=== PATIENT | male | born 1950 | race Hispanic/Latino ===

== ENCOUNTER 2016-12-24 09:21 | Outpatient (CLI) | payer MEDICARE ==
--- NOTE | 2016-12-24 10:58 | XRay Report ---
RIGHT HIP TWO VIEWS: 12/24/16 09:21:00 CLINICAL: Right hip and thigh pain. FINDINGS: Moderately severe bilateral hip osteoarthritis, slightly greater on the right than the left. Both superolateral and medial joint space narrowing. A large right superolateral osteophyte. No fracture or dislocation. The pelvic bones are intact with normal SI joints. Normal soft tissues. IMPRESSION: Moderately severe bilateral osteoarthritis, right worse than left.
--- NOTE | 2016-12-24 11:06 | XRay Report ---
RIGHT FEMUR TWO VIEWS: 12/24/16 09:21:00 CLINICAL: Right hip and thigh pain. FINDINGS: Normal alignment at the hip and knee. A moderately severe osteoarthritis of the right hip with superior and inferior osteophytes and joint space narrowing. No fracture. Normal soft tissues. IMPRESSION: Osteoarthritis of the hip and otherwise negative right femur.
== END 2016-12-24 09:22 | disposition home or self-care (01) ==
LOC: XRAY 09:21
PROVIDERS: ATTEND Internal Medicine Nephrology
DX: M16.0 Bilateral primary osteoarthritis of hip (principal); R10.30 Lower abdominal pain, unspecified; M25.751 Osteophyte, right hip; M79.651 Pain in right thigh